=== PATIENT | female | born 1950 | race Two or more races ===

== ENCOUNTER 2019-07-17 19:05 | Emergency (ER) | payer SELFPAY ==
[~2019-07-17] VITALS: Ht 162.6 cm; Wt 65.0 kg
[2019-07-17 21:33] LABS: BASOPHILS % 0.1 % (0.0-2.0); EOSINOPHILS % 0.2 % (0.0-5.0); HEMATOCRIT. 34.6 % (36.0-48.0); HEMOGLOBIN. 11.6 g/dL (12.0-16.0); LYMPHOCYTES % 7.1 % (20.0-50.0); MEAN CORPUSCULAR HEMOGLOBIN 29.7 pg (28.0-32.0); MEAN CORPUSCULAR VOLUME 88.8 fL (81.0-99.0); MEAN PLATELET VOLUME 8.4 fl (7.4-10.4); MONOCYTES % 2.8 % (2.0-8.0); NEUTROPHILS % 89.8 % (40.0-76.0); PLATELET 357 x1000/uL (130-400); RED CELL DISTRIBUTION WIDTH 13.9 % (11.6-14.6)
[2019-07-17 21:36] LABS: CHLORIDE 107 mEq/L (98-107)
[2019-07-17 21:42] LABS: CLARITY URINE CLEAR (CLEAR); COLOR URINE YELLOW (YELLOW); KETONES URINE NEGATIVE (NEGATIVE); LEUKOCYTE ESTERASE URINE NEGATIVE (NEGATIVE); NITRITE URINE POSITIVE (NEGATIVE); OCCULT BLOOD URINE NEGATIVE (NEGATIVE); PROTEIN URINE NEGATIVE (NEGATIVE); SPECIFIC GRAVITY URINE 1.014 (1.005-1.030); UROBILINOGEN URINE 0.2 E.U./dL (0.2-1.0)
[2019-07-17] MEDS ORDERED: CEFTRIAXONE 1 G PREMIX 50 ML IV NR (22:00)
[2019-07-17 22:55] VITALS: BP 127/68
== END 2019-07-18 00:01 | disposition home or self-care (01) ==
LOC: ER 19:05
DX: N39.0 Urinary tract infection, site not specified (principal); E11.649 Type 2 diabetes mellitus with hypoglycemia without coma; I10 Essential (primary) hypertension; R06.02 Shortness of breath
CPT/HCPCS: 36415; 71045; 80053; 81003; 82962; 85025; 87086; 96365; 99283; J0696

== ENCOUNTER 2020-10-25 00:54 | Inpatient (IN) | payer BC, OTHER ==
[~2020-10-25] VITALS: Ht 152.4 cm; Wt 47.2 kg
[~2020-10-25 00:54] MED LIST: LEVO500T2 PO; METF-414 MT
[2020-10-25] MEDS ORDERED: ASPIRIN 81MG TABLET PO ONE ×2 (01:45→02:15)
[2020-10-25 02:18] LABS: CHLORIDE 94 mEq/L (98-107)
[2020-10-25 02:23] LABS: BASOPHILS % 0.6 % (0.0-2.0); EOSINOPHILS % 1.1 % (0.0-5.0); HEMATOCRIT. 32.4 % (36.0-48.0); HEMOGLOBIN. 10.7 g/dL (12.0-16.0); MEAN CORPUSCULAR HEMOGLOBIN 28.7 pg (28.0-32.0); MEAN CORPUSCULAR VOLUME 87.2 fL (81.0-99.0); MEAN PLATELET VOLUME 8.5 fl (7.4-10.4); MONOCYTES % 6.6 % (2.0-8.0); NEUTROPHILS % 76.7 % (40.0-76.0); PLATELET 363 x1000/uL (130-400); RED BLOOD CELL COUNT 3.72 mill/uL (4.2-5.4); RED CELL DISTRIBUTION WIDTH 15.8 % (11.6-14.6)
[2020-10-25] MEDS ORDERED: IOHEXOL-350 100 ML BOTTLE ONE (06:24)
[2020-10-25] MEDS ORDERED: ACETAMINOPHEN 325MG TABLET PO PRN (15:00)
[2020-10-25] MEDS ORDERED: GUAIFENESIN 200MG/10ML SUGAR FREE UDC PO PRN (15:00)
[2020-10-25] MEDS ORDERED: ACETAMINOPHEN 650MG SUPP PR PRN (15:00)
[2020-10-25] MEDS ORDERED: DIPHENHYDRAMINE 50MG/ML VIAL IV PRN (15:00)
[2020-10-25] MEDS ORDERED: INSULIN GLARGINE UD 100 UNITS/ML SYR SUBCUT NR (15:00)
[2020-10-25] MEDS ORDERED: ONDANSETRON HCL 4MG/2ML INJ IV PRN (15:00)
[2020-10-25] MEDS ORDERED: NA PHOS,M-B/NA PHOS,DI-BA ENEMA 118ML PR PRN (15:00)
[2020-10-25] MEDS ORDERED: MAGNESIUM/ALUMINUM HYDROXIDE/SIMETHICONE 30ML UDC PO PRN (15:00)
[2020-10-25] MEDS ORDERED: DOCUSATE SODIUM 100MG CAPSULE PO PRN (15:00)
[2020-10-25] MEDS ORDERED: DEXTROSE 50% WATER 50ML SYRINGE IV PRN (15:00)
[2020-10-25] MEDS ORDERED: LORAZEPAM 0.5MG TABLET PO PRN (15:00)
[2020-10-25] MEDS ORDERED: HYDROCODONE/ACETAMINOPHEN 5/325MG TABLET PO PRN (15:00)
[2020-10-25] MEDS ORDERED: AZITHROMYCIN 500 MG in DEXT 5% WATER 250 ML IV SCH (15:00)
[2020-10-25] MEDS ORDERED: CEFTRIAXONE 1 G PREMIX 50 ML IV SCH (15:00)
[2020-10-25] MEDS: SODIUM CHLORIDE 0.9% 1,000 ML IV SCH (16:43)
[2020-10-25] MEDS ORDERED: ALBUTEROL 6.7GM HFA INHALER ORI SCH (18:00)
[2020-10-25] MEDS: BLOOD SUGAR DIAGNOSTIC STRIP TEST SCH ×2 (18:11→21:37)
[2020-10-25] MEDS: INSULIN LISPRO 100 UNITS/ML SUBCUT SCH ×2 (18:20→21:42)
[2020-10-25] MEDS: FAMOTIDINE 20MG TABLET PO SCH (21:32)
[2020-10-25] MEDS ORDERED: INSULIN GLARGINE UD 100 UNITS/ML SYR SUBCUT SCH (22:00)
[2020-10-25 22:30] VITALS: BP 168/89
[2020-10-26] MEDS: CLONIDINE 0.1MG TABLET PO PRN ×2 (00:21→22:54)
[2020-10-26 00:48] LABS: CREATINE KINASE MB FRACTION 1.5 ng/mL (0.5-3.6)
[2020-10-26 01:00] VITALS: BP 120/71
[2020-10-26 04:00] VITALS: BP 103/65
[2020-10-26 06:01] LABS: BASOPHILS % 0.3 % (0.0-2.0); EOSINOPHILS % 0.9 % (0.0-5.0); HEMATOCRIT. 26.8 % (36.0-48.0); HEMOGLOBIN. 9.2 g/dL (12.0-16.0); LYMPHOCYTES % 17.8 % (20.0-50.0); MEAN CORPUSCULAR HEMOGLOBIN 29.5 pg (28.0-32.0); MEAN CORPUSCULAR VOLUME 86.3 fL (81.0-99.0); MEAN PLATELET VOLUME 8.3 fl (7.4-10.4); MONOCYTES % 7.9 % (2.0-8.0); NEUTROPHILS % 73.1 % (40.0-76.0); PLATELET 295 x1000/uL (130-400); RED BLOOD CELL COUNT 3.11 mill/uL (4.2-5.4)
[2020-10-26 06:17] LABS: CHLORIDE 99 mEq/L (98-107)
[2020-10-26 06:36] LABS: CREATINE KINASE MB FRACTION 1.6 ng/mL (0.5-3.6); LDL CHOLESTEROL 68 mg/dL (5-100)
[2020-10-26 06:37] LABS: HDL CHOLESTEROL 54 mg/dL (40-59)
[2020-10-26] MEDS: BLOOD SUGAR DIAGNOSTIC STRIP TEST SCH ×4 (06:38→21:51)
[2020-10-26 06:39] LABS: CREATINE KINASE 69 IU/L (26-192)
[2020-10-26] MEDS ORDERED: REGADENOSON 0.4 MG/5 ML IV ONE (06:45)
[2020-10-26] MEDS ORDERED: POTASSIUM CHLORIDE 20MEQ/PACKET PO SCH (06:45)
[2020-10-26] MEDS: INSULIN LISPRO 100 UNITS/ML SUBCUT SCH ×4 (07:50→22:07)
[2020-10-26 08:00] VITALS: BP 111/67
[2020-10-26] MEDS: AMLODIPINE 2.5MG TABLET PO SCH (08:32)
[2020-10-26] MEDS: ASPIRIN 81MG EC TABLET PO SCH (08:32)
[2020-10-26 12:00] VITALS: BP 116/68
[2020-10-26] MEDS: SODIUM CHLORIDE 0.9% 1,000 ML IV SCH (12:33)
[2020-10-26] MEDS: INSULIN GLARGINE UD 100 UNITS/ML SYR SUBCUT SCH ×2 (12:35→22:06)
[2020-10-26] MEDS: AZITHROMYCIN 500 MG in DEXT 5% WATER 250 ML IV SCH (17:31)
[2020-10-26] MEDS: CEFTRIAXONE 1,000 MG in DEXTROSE 5% WATER 50 ML IV SCH (17:31)
[2020-10-26 20:00] VITALS: BP 139/81
[2020-10-26] MEDS: FAMOTIDINE 20MG TABLET PO SCH (21:58)
[2020-10-26] MEDS: GUAIFENESIN 600MG ER TABLET PO SCH (21:59)
[2020-10-27] VITALS: BP 147/85
[2020-10-27 04:00] VITALS: BP 143/82
[2020-10-27] MEDS: SODIUM CHLORIDE 0.9% 1,000 ML IV SCH (06:03)
[2020-10-27] MEDS: BLOOD SUGAR DIAGNOSTIC STRIP TEST SCH ×4 (06:34→20:55)
[2020-10-27] MEDS: INSULIN LISPRO 100 UNITS/ML SUBCUT SCH ×4 (07:50→20:54)
[2020-10-27 08:00] VITALS: BP 90/52
[2020-10-27 08:21] LABS: BASOPHILS % 0.3 % (0.0-2.0); EOSINOPHILS % 1.8 % (0.0-5.0); HEMATOCRIT. 28.3 % (36.0-48.0); HEMOGLOBIN. 9.5 g/dL (12.0-16.0); LYMPHOCYTES % 25.1 % (20.0-50.0); MEAN CORPUSCULAR HEMOGLOBIN 28.7 pg (28.0-32.0); MEAN CORPUSCULAR VOLUME 85.6 fL (81.0-99.0); MEAN PLATELET VOLUME 8.5 fl (7.4-10.4); MONOCYTES % 7.6 % (2.0-8.0); NEUTROPHILS % 65.2 % (40.0-76.0); PLATELET 307 x1000/uL (130-400); RED BLOOD CELL COUNT 3.31 mill/uL (4.2-5.4); RED CELL DISTRIBUTION WIDTH 15.7 % (11.6-14.6)
[2020-10-27 08:43] LABS: CHLORIDE 99 mEq/L (98-107)
[2020-10-27] MEDS: AMLODIPINE 2.5MG TABLET PO SCH (09:00)
[2020-10-27] MEDS: ASPIRIN 81MG EC TABLET PO SCH (09:32)
[2020-10-27] MEDS: GUAIFENESIN 600MG ER TABLET PO SCH ×2 (09:32→20:50)
[2020-10-27] MEDS: INSULIN GLARGINE UD 100 UNITS/ML SYR SUBCUT SCH ×2 (09:37→21:16)
[2020-10-27 12:00] VITALS: BP 123/63
[2020-10-27 16:00] VITALS: BP 110/60
[2020-10-27] MEDS: CEFTRIAXONE 1,000 MG in DEXTROSE 5% WATER 50 ML IV SCH (18:03)
[2020-10-27] MEDS: AZITHROMYCIN 500 MG in DEXT 5% WATER 250 ML IV SCH (18:03)
[2020-10-27 20:00] VITALS: BP 165/76
[2020-10-27] MEDS: FAMOTIDINE 20MG TABLET PO SCH (20:50)
[2020-10-28] VITALS: BP 169/82
[2020-10-28 04:00] VITALS: BP 125/67
[2020-10-28] MEDS: SODIUM CHLORIDE 0.9% 1,000 ML IV SCH (05:20)
[2020-10-28] MEDS: BLOOD SUGAR DIAGNOSTIC STRIP TEST SCH ×2 (06:35→11:52)
[2020-10-28 06:53] LABS: BASOPHILS % 0.4 % (0.0-2.0); EOSINOPHILS % 1.6 % (0.0-5.0); HEMATOCRIT. 28.7 % (36.0-48.0); HEMOGLOBIN. 9.9 g/dL (12.0-16.0); LYMPHOCYTES % 28.4 % (20.0-50.0); MEAN CORPUSCULAR HEMOGLOBIN 29.5 pg (28.0-32.0); MEAN CORPUSCULAR VOLUME 85.8 fL (81.0-99.0); MEAN PLATELET VOLUME 8.5 fl (7.4-10.4); MONOCYTES % 9.1 % (2.0-8.0); NEUTROPHILS % 60.5 % (40.0-76.0); PLATELET 338 x1000/uL (130-400); RED BLOOD CELL COUNT 3.34 mill/uL (4.2-5.4); RED CELL DISTRIBUTION WIDTH 15.5 % (11.6-14.6)
[2020-10-28 07:27] LABS: CHLORIDE 102 mEq/L (98-107)
[2020-10-28 08:00] VITALS: BP 122/71
[2020-10-28] MEDS: GUAIFENESIN 600MG ER TABLET PO SCH (08:34)
[2020-10-28] MEDS: AMLODIPINE 2.5MG TABLET PO SCH (08:34)
[2020-10-28] MEDS: ASPIRIN 81MG EC TABLET PO SCH (08:34)
[2020-10-28] MEDS: INSULIN LISPRO 100 UNITS/ML SUBCUT SCH ×2 (08:36→11:54)
[2020-10-28] MEDS ORDERED: REGADENOSON 0.4 MG/5 ML IV ONE (09:43)
[2020-10-28] MEDS: INSULIN GLARGINE UD 100 UNITS/ML SYR SUBCUT SCH (10:00)
[2020-10-28 12:00] VITALS: BP 148/58
[2020-10-28 16:00] VITALS: BP 134/79
== END 2020-10-28 18:10 | disposition home or self-care (01) | DRG 206 ==
LOC: ER 00:54 → 7WST 05:33 → SUPCPDRO 14:49 → ENRESERV 21:04 → 6WST 10-26 00:45
PROVIDERS: ADMIT Internal Medicine; ATTEND Internal Medicine
DX: M94.0 Chondrocostal junction syndrome [Tietze] (principal); E87.1 Hypo-osmolality and hyponatremia; I10 Essential (primary) hypertension; D63.8 Anemia in other chronic diseases classified elsewhere; E87.6 Hypokalemia; J06.9 Acute upper respiratory infection, unspecified; E11.65 Type 2 diabetes mellitus with hyperglycemia; E27.8 Other specified disorders of adrenal gland; Z20.822 Contact with and (suspected) exposure to COVID-19; Z86.16 Personal history of COVID-19; Z79.82 Long term (current) use of aspirin; Z79.899 Other long term (current) drug therapy; J40 Bronchitis, not specified as acute or chronic
CPT/HCPCS: 36415; 71045; 71275; 78452; 80048; 80053; 80061; 82550; 82553; 82962; 83036; 83880; 84439; 84443; 84484; 85025; 85379; 93005; 93017; 93306; 93970; 97162; 99291; A9500; J0456; J0696; J1815; J2785; J7060; Q9967; U0003

== ENCOUNTER 2021-01-13 12:53 | Inpatient (IN) | payer BC ==
[~2021-01-13] VITALS: Ht 149.9 cm; Wt 64.9 kg
[~2021-01-13 12:53] MED LIST changes: +BLOO-1613 MC; +HYDR-4001 MT; +INSU100I28 SQ; +LANC1COM2 MC; -LEVO500T2 PO; +LEVO500T89 MT; -METF-414 MT; +METF-415 MT; +SULF1TAB47 MT
[2021-01-13] MEDS ORDERED: PIPERACILLIN/TAZ 3.375G PREMIX 50 ML IV ONE (13:45)
[2021-01-13] MEDS ORDERED: VANCOMYCIN 1 G PREMIX 200 ML IV ONE (13:45)
[2021-01-13] MEDS ORDERED: SODIUM CHLORIDE 0.9% 1000ML BAG (SEPSIS BOLUS) IV ONE (13:45)
[2021-01-13 14:03] LABS: BASOPHILS % 0.6 % (0.0-2.0); EOSINOPHILS % 0.2 % (0.0-5.0); HEMOGLOBIN. 9.3 g/dL (12.0-16.0); LYMPHOCYTES % 10.9 % (20.0-50.0); MEAN CORPUSCULAR HEMOGLOBIN 29.9 pg (28.0-32.0); MEAN CORPUSCULAR VOLUME 86.4 fL (81.0-99.0); MEAN PLATELET VOLUME 7.8 fl (7.4-10.4); MONOCYTES % 6.3 % (2.0-8.0); PLATELET 604 x1000/uL (130-400); RED BLOOD CELL COUNT 3.12 mill/uL (4.2-5.4); RED CELL DISTRIBUTION WIDTH 13.4 % (11.6-14.6)
[2021-01-13 14:09] LABS: CHLORIDE 96 mEq/L (98-107)
[2021-01-13] MEDS ORDERED: CLINDAMYCIN 600 MG in DEXTROSE 5% WATER 50 ML IV ONE (14:15)
[2021-01-13] MEDS: CLINDAMYCIN 600MG PREMIX 50 ML IV NR ×3 (15:03→16:07)
[2021-01-13 15:45] LABS: CLARITY URINE CLEAR (CLEAR); COLOR URINE YELLOW (YELLOW); KETONES URINE NEGATIVE (NEGATIVE); LEUKOCYTE ESTERASE URINE NEGATIVE (NEGATIVE); NITRITE URINE NEGATIVE (NEGATIVE); OCCULT BLOOD URINE NEGATIVE (NEGATIVE); PROTEIN URINE NEGATIVE (NEGATIVE); SPECIFIC GRAVITY URINE 1.011 (1.005-1.030); UROBILINOGEN URINE 0.2 E.U./dL (0.2-1.0)
[2021-01-13] MEDS ORDERED: ASPIRIN 325MG EC TABLET PO ONE (17:15)
[2021-01-13 20:43] VITALS: BP 138/71
[2021-01-13] MEDS ORDERED: DEXTROSE 50% WATER 50ML SYRINGE IV PRN (23:15)
[2021-01-14] MEDS ORDERED: PIPERACILLIN/TAZOBACTAM 3.375 G/VIAL IV SCH
[2021-01-14] MEDS ORDERED: CLONIDINE 0.1MG TABLET PO PRN (00:15)
[2021-01-14] MEDS ORDERED: SODIUM CHLORIDE 0.9% 1,000 ML IV SCH (00:30)
[2021-01-14] MEDS ORDERED: INSULIN LISPRO 100 UNITS/ML SUBCUT NR (01:15)
[2021-01-14] MEDS: PIPERACILLIN/TAZOBACTAM 2.25 G in DEXTROSE 5% WATER 50 ML IV SCH ×4 (01:21→18:16)
[2021-01-14 06:20] LABS: BASOPHILS % 0.4 % (0.0-2.0); EOSINOPHILS % 1.1 % (0.0-5.0); HEMATOCRIT. 28.3 % (36.0-48.0); HEMOGLOBIN. 9.7 g/dL (12.0-16.0); LYMPHOCYTES % 26.4 % (20.0-50.0); MEAN CORPUSCULAR HEMOGLOBIN 29.6 pg (28.0-32.0); MEAN CORPUSCULAR VOLUME 86.1 fL (81.0-99.0); MEAN PLATELET VOLUME 8.2 fl (7.4-10.4); MONOCYTES % 10.8 % (2.0-8.0); NEUTROPHILS % 61.3 % (40.0-76.0); PLATELET 653 x1000/uL (130-400); RED BLOOD CELL COUNT 3.29 mill/uL (4.2-5.4); RED CELL DISTRIBUTION WIDTH 13.5 % (11.6-14.6)
[2021-01-14] MEDS: BLOOD SUGAR DIAGNOSTIC STRIP TEST SCH ×3 (06:21→17:34)
[2021-01-14] MEDS: INSULIN LISPRO 100 UNITS/ML SUBCUT SCH ×3 (06:21→17:34)
[2021-01-14 06:37] LABS: CHLORIDE 102 mEq/L (98-107)
[2021-01-14 06:49] LABS: LDL CHOLESTEROL 102 mg/dL (5-100)
[2021-01-14 06:51] LABS: CREATINE KINASE 61 IU/L (26-192); HDL CHOLESTEROL 34 mg/dL (40-59)
[2021-01-14 06:53] LABS: CREATINE KINASE MB FRACTION < 1.0 ng/mL (0.5-3.6)
[2021-01-14] MEDS ORDERED: PANTOPRAZOLE 40MG DR TABLET PO SCH (07:10)
[2021-01-14] MEDS: VANCOMYCIN 500 MG PREMIX 100 ML IV SCH ×2 (07:18→18:16)
[2021-01-14 08:00] VITALS: BP 135/71
[2021-01-14] MEDS ORDERED: ASPIRIN 81MG TABLET PO SCH (09:00)
[2021-01-14] MEDS ORDERED: ENOXAPARIN 30MG/0.3ML SYR SUBCUT SCH (09:00)
[2021-01-14] MEDS ORDERED: INSULIN GLARGINE UD 100 UNITS/ML SYR SUBCUT SCH (10:00)
[2021-01-14 12:00] VITALS: BP 135/71
[2021-01-14 13:20] LABS: CREATINE KINASE 29 IU/L (26-192)
[2021-01-14 13:21] LABS: CREATINE KINASE MB FRACTION < 1.0 ng/mL (0.5-3.6)
[2021-01-14 16:00] VITALS: BP 120/75
[2021-01-14 17:37] VITALS: BP 120/75
[2021-01-14] MEDS ORDERED: POTASSIUM CHLORIDE 20MEQ TABLET SR PO NR (18:00)
[2021-01-15] MEDS ORDERED: ENOXAPARIN 40MG/0.4ML SYR SUBCUT SCH (09:00)
== END 2021-01-14 19:14 | disposition home health service (06) | DRG 871 ==
LOC: ER 13:59 → 8WST 17:47 → ENRESERV 20:06
PROVIDERS: ADMIT Internal Medicine; ATTEND Internal Medicine
DX: A41.9 Sepsis, unspecified organism (principal); R65.21 Severe sepsis with septic shock; E43 Unspecified severe protein-calorie malnutrition; E87.1 Hypo-osmolality and hyponatremia; E11.65 Type 2 diabetes mellitus with hyperglycemia; D64.9 Anemia, unspecified; I10 Essential (primary) hypertension; E87.8 Other disorders of electrolyte and fluid balance, not elsewhere classified; Z68.28 Body mass index [BMI] 28.0-28.9, adult
CPT/HCPCS: 36415; 71045; 80048; 80053; 80061; 81003; 82550; 82553; 82962; 83036; 83605; 84145; 84484; 85025; 93005; 99291; A6261; C1893; J1650; J1815; J2543; J3370; J3490; J7030; J7060